=== PATIENT | female | born 1975 | race Caucasian/White ===

== ENCOUNTER 2016-11-01 19:23 | Emergency (ER) | payer MEDICAID ==
[2016-11-01 19:28] VITALS: TEMP 98.6
--- NOTE | 2016-11-01 19:32 | EDPHY ---
H & P Stated Complaint: STEPPED BACKWARDS, SUDDEN PAIN RIGHT ANKLE, CANT WALK ON Time Seen by Provider: 11/01/16 19:32 - Personal History LMP (Females 10-55): 8-14 Days Ago Current Tetanus/Diphtheria Vaccine: Yes Tetanus Vaccine Date: within 10 yrs? - Medical/Surgical History Hx Asthma: No Hx Chronic Respiratory Disease: No Hx Diabetes: No Hx Cardiac Disease: No Hx Renal Disease: No Hx Cirrhosis: No Hx Alcoholism: Yes Hx HIV/AIDS: No Hx Splenectomy or Spleen Trauma: No Other PMH: fibromyalgia, tachycardia, bipolar, T7-L1 disk fusion, appendectomy - Social History Smoking Status: Current every day smoker Constitutional: Initial Vital Signs Temperature (C) 37.0 C 11/01/16 19:24 Heart Rate 73 11/01/16 19:24 Respiratory Rate 18 11/01/16 19:24 Blood Pressure 134/102 H 11/01/16 19:24 O2 Sat (%) 95 11/01/16 19:24 O2 Delivery Mode Room Air Allergies/Adverse Reactions: shellfish derived Allergy (Severe, Verified 03/16/16 11:47) Anaphylaxis acetaminophen Allergy (Mild, Verified 03/16/16 11:47) Vomiting hydrocodone bitartrate [From Vicodin] Allergy (Mild, Verified 03/16/16 11:47) Vomiting Home Medications: Medication Instructions Recorded Hydroxyzine Pamoate 25 mg PO TID PRN 03/19/15 PREGABALIN [LYRICA] 100 mg PO QID 03/19/15 Propranolol HCl [Inderal 20mg (*)] 20 mg PO TID 03/19/15 buPROPion SR [Wellbutrin 100mg SR 100 mg PO DAILY@08 03/19/15 (*)] traMADol [Ultram 50 mg (*)] 50 mg PO DAILY 03/19/15 traMADol [Ultram 50 mg (*)] 50 mg PO Q6 PRN #30 tab 03/19/15 traZODone [traZODONE 50MG (*)] 50 mg PO HS 03/19/15 Latuda 07/19/15 Ondansetron Odt [Zofran Odt 4 mg 4 mg PO Q4PRN PRN #10 tab 03/16/16 (*)] Potassium Chloride Po [Potassium 20 meq PO BID #7 ml 12/20/16 Chloride 20 mg/15 ml (*)] Promethazine HCl [Phenergan 25mg 25 mg PO Q4-6PRN PRN #7 tab 03/16/16 (*)] Medical Decision Making - Diagnostics Imaging Results: Imaging Impressions Lower Extremity MRI 11/01/16 19:46 Impression: 1. Minimal strain and partial tear distal Achilles tendon, as above. 2. Minimal tendinopathy peroneal brevis and longus tendon. Results called and discussed with Nolan Gaytan M.D., on November 01, 2016 at 2057. Imaging: Discussed imaging studies w/ call center team leader Radiologist ED Course/Re-evaluation: CHIEF COMPLAINT: Right ankle injury HISTORY OF PRESENT ILLNESS: This patient is a 41 year old female complaining of right ankle pain secondary to an incident about an hour and a half prior to arrival. She was standing at kitchen counter making a cup of tea, took a step backward, pain went shooting through ankle. She denies rolling her ankle in either direction. Her pain is in the area of her Achilles tendon. She wrapped and iced her ankle at home. She is unable to bear weight on her right ankle. She experienced continued pain, and presents for evaluation. No fever, chills, vomiting, or other associated symptoms. REVIEW OF SYSTEMS: A 10 point review of systems was performed and is negative with the exception of the elements mentioned in the history of present illness. PHYSICAL EXAM: HR, BP, O2 Sat, RR. Temp noted General Appearance: Alert, well hydrated, appropriate, and non-toxic appearing. Head: Atraumatic without scalp tenderness or obvious injury Eyes: Pupils equal, round, reactive to light and accommodation, EOMI, no trauma , no injection. Throat: Mucus membranes moist. Neck: Supple, nontender. Respiratory: No retractions, no distress, no wheezes, and no accessory muscle use. Cardiovascular: Regular rate and rhythm. Good capillary refill all extremities. Musculoskeletal: Tenderness to right ankle, especially in the area of the Achilles tendon. Normal active ROM of all extremities, atraumatic. Neurological: Alert, appropriate, and interactive. The patient has normal DTRs and non-focal cranial nerves, motor, sensory, and cerebellar exam. Skin: No rashes, good turgor, no nodules on palpation. Past medical history: Fibromyalgia, Tachycardia, Bipolar. Past surgical history: T7-L1 spine fusion. Appendectomy. Family history: Noncontributory Social history: Friend at bedside. . Lives in [place]. PCP: Dr. May Portillo. DIFFERENTIAL DIAGNOSIS: Includes but not limited to ankle sprain, strain, fracture, Achilles tendon rupture. MEDICAL DECISION MAKING: Patient is taking Naltrexone so declines narcotic pain medications. 19:[address] Alva, radiologist. Plan for MRI ankle to evaluate Achilles tendon. 20:57 MRI shows partially torn Achilles tendon at posterior calcaneus. Plan to discharge home in good condition with Matt boot and crutches, partial weightbearing as tolerated. Follow up with orthopedics. Return precautions discussed. The patient is comfortable with this plan. Departure - Departure Disposition: Home, Routine, Self-Care Clinical Impression: Partial rupture of Achilles tendon Qualifiers: Encounter type: initial encounter Laterality: right Qualified Code(s): S86.011A - Strain of right Achilles tendon, initial encounter Condition: Good Instructions: Achilles Tendon Rupture (ED) Additional Instructions: 1. Follow up with an 4 h youth development specialist this week. We have referred you to our 4 h youth development specialist forest fire prevention manager. 2. Wear your Matt boot as directed until follow up with orthopedics. Use your crutches as directed. You may partially bear weight. 3. Take Tylenol or ibuprofen as directed on the packaging for pain and swelling 4. Rest, ice and elevation for symptom relief. 5. Return to the emergency department for worsening pain, swelling, numbness, weakness or other concerns. Referrals: May Portillo MD [Primary Care Provider] - As per Instructions Lc Thacker MD [Medical Doctor] - As per Instructions Report Scribed for: Nolan Gaytan Report Scribed by: Ros Saleh Date of Report: 11/01/16 Time of Report: 19:37
[2016-11-01 21:41] VITALS: BP 134/89; PULSE 80; RESP 16; O2SAT 96
== END 2016-11-01 21:46 | disposition home or self-care (01) ==
DX: S86.011A Strain of right Achilles tendon, initial encounter (principal); F17.200 Nicotine dependence, unspecified, uncomplicated; X58.XXXA Exposure to other specified factors, initial encounter
CPT/HCPCS: L4386

== ENCOUNTER 2018-02-09 20:22 | Emergency (ER) | payer MEDICAID ==
--- NOTE | 2018-02-09 20:25 | EDPHY ---
H & P Time Seen by Provider: 02/09/18 20:25 HPI/ROS: HPI CHIEF COMPLAINT: Fall, head injury. HISTORY OF PRESENT ILLNESS: This patient very pleasant 42-year-old female, history of fibromyalgia bipolar disorder, she drinking alcohol this evening, and tripped over something that her child left out on the ground this caused her to lose her balance, with head strike against the entertainment center. Mainly left-sided head strike. No LOC. She arrives to the emergency room by private vehicle. She smells of alcohol, slurring her speech. There is no significant visible sign of trauma on exam however patient is complaining of left-sided headache. No neck pain. She is intoxicated with alcohol. Past Medical History: Significant past medical history for fibromyalgia, bipolar disorder, T7 through L1 fusion Past Surgical History: T7 through L1 fusion, appendectomy Social History: Denies drugs alcohol tobacco. Family History: Noncontributory ROS REVIEW OF SYSTEMS: 10 Systems were reviewed and negative with the exception of the elements mentioned in the history of present illness. Exam Constitutional smells of alcohol, triage nursing summary reviewed, vital signs reviewed, awake/alert. Eyes normal conjunctivae and sclera, EOMI, PERRLA. HENT head/neck atraumatic on exam however patient complains of pain left parietal temporal region, no midline cervical spine pain, no step-offs, no crepitus moist mucus membranes, no epistaxis, neck supple/ no meningismus, no raccoon eyes. Respiratory clear to auscultation bilaterally, normal breath sounds, no respiratory distress, no wheezing. Cardiovascular rate normal, regular rhythm, no murmur, no edema, distal pulses normal. Gastrointestinal soft, non-tender, no rebound, no guarding, normal bowel sounds, no distension, no pulsatile mass. Genitourinary no CVA tenderness. Musculoskeletal no midline vertebral tenderness, full range of motion, no calf swelling, no tenderness of extremities, no meningismus, good pulses, neurovascularly intact. Skin pink, warm, & dry, no rash, skin atraumatic. Neurologic awake, alert and oriented x 3, AAOx3, moves all 4 extremities equally, motor intact, sensory intact, CN II-XII intact, normal cerebellar, normal vision, slurring speech Psychiatric normal mood/affect. Heme/Lymph/Immune no lymphadenopathy. Differential Diagnosis: Includes but is not limited to in a particular order acute alcohol intoxication, closed head injury, concussion, intracranial bleed, subdural, epidural, traumatic subarachnoid, skull fracture Medical Decision Making: Plan for this patient breath alcohol, CT scan head without contrast for trauma. Re-evaluation: Patient's breath alcohol at 8:32 p.m. Upon arrival to the emergency room is 0.178. CT scan head without contrast negative for acute traumatic injury. No evidence of intracranial bleed or skull fracture. Patient re-evaluated 2107 resting comfortably. Infection was sleeping at 1 point. Nonfocal neurological exam. Alcohol level noted. She is safe ride home. She is able to walk appropriately. CT scan does not show any evidence of acute bleed. I have discussed her results at length with her. She is comfortable discharge home. Source: Patient - Personal History Tetanus Vaccine Date: within 10 yrs? - Medical/Surgical History Hx Asthma: No Hx Chronic Respiratory Disease: No Hx Diabetes: No Hx Cardiac Disease: No Hx Renal Disease: No Hx Cirrhosis: No Hx Alcoholism: Yes Hx HIV/AIDS: No Hx Splenectomy or Spleen Trauma: No Other PMH: fibromyalgia, tachycardia, bipolar, T7-L1 disk fusion, appendectomy - Social History Smoking Status: Current every day smoker Constitutional: Initial Vital Signs Temperature (C) 36.5 C 02/09/18 20:32 Heart Rate 82 02/09/18 20:32 Respiratory Rate 18 02/09/18 20:32 Blood Pressure 149/80 H 02/09/18 20:32 O2 Sat (%) 96 02/09/18 20:32 O2 Delivery Mode Room Air Allergies/Adverse Reactions: shellfish derived Allergy (Severe, Verified 03/16/16 11:47) Anaphylaxis acetaminophen Allergy (Mild, Verified 03/16/16 11:47) Vomiting hydrocodone bitartrate [From Vicodin] Allergy (Mild, Verified 03/16/16 11:47) Vomiting Home Medications: Medication Instructions Recorded Hydroxyzine Pamoate 25 mg PO TID PRN 03/19/15 PREGABALIN [LYRICA] 100 mg PO QID 03/19/15 Propranolol HCl [Inderal 20mg (*)] 20 mg PO TID 03/19/15 buPROPion SR [Wellbutrin 100mg SR 100 mg PO DAILY@08 03/19/15 (*)] traMADol [Ultram 50 mg (*)] 50 mg PO DAILY 03/19/15 traMADol [Ultram 50 mg (*)] 50 mg PO Q6 PRN #30 tab 03/19/15 traZODone [traZODONE 50MG (*)] 50 mg PO HS 03/19/15 Latuda 07/19/15 Ondansetron Odt [Zofran Odt 4 mg 4 mg PO Q4PRN PRN #10 tab 03/16/16 (*)] Potassium Chloride Po [Potassium 20 meq PO BID #7 ml 03/16/16 Chloride 20 mg/15 ml (*)] Promethazine HCl [Phenergan 25mg 25 mg PO Q4-6PRN PRN #7 tab 03/16/16 (*)] Departure - Departure Disposition: Home, Routine, Self-Care Clinical Impression: Fall Qualifiers: Encounter type: initial encounter Qualified Code(s): W19.XXXA - Unspecified fall, initial encounter Head injury Qualifiers: Encounter type: initial encounter Qualified Code(s): S09.90XA - Unspecified injury of head, initial encounter Alcohol intoxication Qualifiers: Complication of substance-induced condition: uncomplicated Qualified Code(s): F10.920 - Alcohol use, unspecified with intoxication, uncomplicated Condition: Good Instructions: Concussion (ED), Head Injury (ED), Alcohol Intoxication (ED) Referrals: May Portillo MD [Primary Care Provider] - As per Instructions
[2018-02-09 21:17] VITALS: BP 112/75
== END 2018-02-09 21:18 | disposition home or self-care (01) ==
DX: S09.90XA Unspecified injury of head, initial encounter (principal); F10.920 Alcohol use, unspecified with intoxication, uncomplicated; W01.198A Fall on same level from slipping, tripping and stumbling with subsequent striking against other object, initial encounter; Y92.9 Unspecified place or not applicable; Y93.9 Activity, unspecified; Y99.9 Unspecified external cause status

== ENCOUNTER 2018-02-13 12:16 | Emergency (ER) | payer MEDICAID ==
--- NOTE | 2018-02-13 12:40 | EDPHY ---
H & P Time Seen by Provider: 02/13/18 12:26 HPI/ROS: CHIEF COMPLAINT: I feel worse HISTORY OF PRESENT ILLNESS: 42-year-old woman was here in the emergency department on February 09. She tripped over something her child left on the floor, hit the left side of her head versus an entertainment center, did not lose consciousness. She presented and had a negative noncontrast head CT scan of her head. She felt better the next day but over the last 2 days has felt worse. She describes having difficulty focusing with her eyes, searching for words, and worsening left-sided headache. It now radiates to the base of her neck on the left side she says it is associated with feeling numb and heavy on the left side her face, feeling a little bit of off balance and dizzy with increased memory loss. Symptoms moderate, not better worse with anything. Really increased over the last 48 hr. She has been taking ibuprofen which helps but then the headache reoccurs. REVIEW OF SYSTEMS: Eye: HPI ENT: No ear symptoms Cardiac: no chest pain or syncope Pulmonary: no cough or SOB Abdomen: No vomiting or abdominal pain Musculoskeletal: HPI, has some left shoulder pain which is where she landed. That is pretty stable. Skin: no rash Neuro: HPI Constitutional: no fever : no urinary symptoms A comprehensive 10 point review of systems is otherwise negative aside from elements mentioned in the history of present illness. PAST MEDICAL HISTORY: Includes fibromyalgia, bipolar disorder, spinal fusion, appendectomy and cholecystectomy. Social history: Here with family, nonsmoker General Appearance: Alert and conversant, cooperative. Eyes: No scleral icterus. Pupils equal reactive to light extraocular motion intact. ENT, Mouth: Normal mucous membranes. No hemotympanum. Respiratory: Normal respiratory effort, breath sounds equal, lungs are clear to auscultation. Cardiovascular: Regular rate and rhythm. Gastrointestinal: Abdomen is soft and non tender. No splenic tenderness. Neurological: Alert, face symmetric, normal motor and sensory in extremities. Normal [id number] bilaterally, she walked to the room, does not have truncal ataxia, no pronator drift. Speech is fluent. She has intact sensation to light touch in both sides of her face. Skin: Warm and dry, no rashes. Musculoskeletal: No cervical thoracic or lumbar spine midline tenderness to palpation. She can lift her left arm up over her head does not have bony tenderness on her left shoulder. No left upper extremity tenderness. Psychiatric: Not agitated. Emergency Department course/MDM: More likely to be prolonged severe concussion, however with left-sided neck pain and neurologic symptoms and feeling vertigo and off balance, CT angio of her neck discussed and consented. Would repeat noncontrast head CT to look for delayed bleeding, angiography. Discharge with primary care follow-up if negative. 1253: Potassium notice slightly low at 2.9. The patient does not have symptoms of muscle weakness or syncope or palpitations. She says she typically runs a low potassium and normally takes an oral supplement but has not for the last 3 days. 40 mEq orally here. 1355: CT head and angio head/neck discussed with radiologistLilo. Negative for acute or subacute traumatic injury or dissection. Discussed the results with the patient. She states she is comfortable with discharge, referred to her primary care doctor and to the concussion Clinic Dr. Eisenberg. She was warned of a left internal capsule finding noted by the radiologist which was present on previous CT and on MRI in 2015. Smoking Status: Current every day smoker Constitutional: Initial Vital Signs Temperature (C) 36.7 C 02/13/18 12:18 Heart Rate 101 H 02/13/18 12:18 Respiratory Rate 16 02/13/18 12:18 Blood Pressure 129/95 H 02/13/18 12:18 O2 Sat (%) 96 02/13/18 12:18 O2 Delivery Mode Room Air Allergies/Adverse Reactions: shellfish derived Allergy (Severe, Verified 03/16/16 11:47) Anaphylaxis acetaminophen Allergy (Mild, Verified 03/16/16 11:47) Vomiting hydrocodone bitartrate [From Vicodin] Allergy (Mild, Verified 03/16/16 11:47) Vomiting Home Medications: Medication Instructions Recorded Hydroxyzine Pamoate 25 mg PO TID PRN 03/19/15 PREGABALIN [LYRICA] 100 mg PO QID 03/19/15 Propranolol HCl [Inderal 20mg (*)] 20 mg PO TID 03/19/15 buPROPion SR [Wellbutrin 100mg SR 100 mg PO DAILY@08 03/19/15 (*)] traMADol [Ultram 50 mg (*)] 50 mg PO DAILY 03/19/15 traMADol [Ultram 50 mg (*)] 50 mg PO Q6 PRN #30 tab 03/19/15 traZODone [traZODONE 50MG (*)] 50 mg PO HS 03/19/15 Latuda 07/19/15 Ondansetron Odt [Zofran Odt 4 mg 4 mg PO Q4PRN PRN #10 tab 03/16/16 (*)] Potassium Chloride Po [Potassium 20 meq PO BID #7 ml 03/16/16 Chloride 20 mg/15 ml (*)] Promethazine HCl [Phenergan 25mg 25 mg PO Q4-6PRN PRN #7 tab 03/16/16 (*)] Medical Decision Making - Diagnostics Imaging Results: Imaging Impressions Head CT 02/13/18 12:47 Impression: No acute intracranial findings. Rito Allen was notified of these findings by telephone at 2:00 PM on 02/13/2018 Head CTA 02/13/18 12:47 Impression: 1. There is no hemodynamically significant ICA stenosis. 2. Patent vertebral arteries. CT ANGIOGRAPHY OF THE BRAIN: The major vessels of the [place] are well visualized, and there is no large aneurysm, vascular malformation, flow- limiting stenosis, or acute occlusion identified. A mild amount of intimal irregularity is seen in the supraclinoid ICA on the right, this atherosclerotic lesion is partially calcified as seen on noncontrast image 4-37, and does not cause any significant stenosis. The distal cervical, petrous, cavernous, and supraclinoid portions of the internal carotid arteries are patent. The A1 and A2 segments are patent as are the M1, M2, and M3 trifurcation vessels. With regards to the posterior circulation, the distal vertebral arteries are patent. The posterior inferior cerebellar arteries, vertebrobasilar confluence, anterior inferior cerebellar arteries, basilar artery, superior cerebellar arteries, and the posterior cerebral arteries are patent. The posterior communicating arteries are patent. Impression: 1. No evidence of acute arterial dissection or thrombus. Rito Allen was notified of these findings by telephone at 2:00 PM on 02/13/2022 Neck CTA 02/13/18 12:47 Impression: 1. There is no hemodynamically significant ICA stenosis. 2. Patent vertebral arteries. CT ANGIOGRAPHY OF THE BRAIN: The major vessels of the [place] are well visualized, and there is no large aneurysm, vascular malformation, flow- limiting stenosis, or acute occlusion identified. A mild amount of intimal irregularity is seen in the supraclinoid ICA on the right, this atherosclerotic lesion is partially calcified as seen on noncontrast image 4-37, and does not cause any significant stenosis. The distal cervical, petrous, cavernous, and supraclinoid portions of the internal carotid arteries are patent. The A1 and A2 segments are patent as are the M1, M2, and M3 trifurcation vessels. With regards to the posterior circulation, the distal vertebral arteries are patent. The posterior inferior cerebellar arteries, vertebrobasilar confluence, anterior inferior cerebellar arteries, basilar artery, superior cerebellar arteries, and the posterior cerebral arteries are patent. The posterior communicating arteries are patent. Impression: 1. No evidence of acute arterial dissection or thrombus. Rito Allen was notified of these findings by telephone at 2:00 PM on 02/13/2022 Imaging: Discussed imaging studies w/ train caller Radiologist Differential Diagnosis: Differential considered including but not limited to delayed subdural, delayed subarachnoid, vascular dissection, concussion. - Data Points Laboratory Results: 02/13/18 12:46 POC Hgb 12.6 gm/dL gm/dL (12.6-16.3) POC Hct 37 % L % (38-47) POC Sodium 138 mEq/L mEq/L (135-145) POC Potassium 2.9 mEq/L L mEq/L (3.3-5.0) POC Chloride 96 mEq/L L mEq/L (97-110) POC BUN 9 mg/dL mg/dL (7-23) POC Creatinine 0.7 mg/dL mg/dL (0.6-1.0) POC Glucose 83 mg/dL mg/dL (70-100) Medications Given: Discontinued Medications Potassium Chloride (Klor-Con) 40 meq PO EDNOW ONE Stop: 02/13/18 12:54 Last Admin: 02/13/18 13:16 Dose: 40 meq Point of Care Test Results: Chemistry 02/13/18 12:46 POC Sodium 138 mEq/L mEq/L (135-145) POC Potassium 2.9 mEq/L L mEq/L (3.3-5.0) POC Chloride 96 mEq/L L mEq/L (97-110) POC BUN 9 mg/dL mg/dL (7-23) POC Creatinine 0.7 mg/dL mg/dL (0.6-1.0) POC Glucose 83 mg/dL mg/dL (70-100) ISTAT H&H 02/13/18 12:46 POC Hgb 12.6 gm/dL gm/dL (12.6-16.3) POC Hct 37 % L % (38-47) Departure - Departure Disposition: Home, Routine, Self-Care Clinical Impression: Post concussion syndrome, Hypokalemia Concussion Qualifiers: Encounter type: subsequent encounter Loss of consciousness presence/duration: without LOC Qualified Code(s): S06.0X0D - Concussion without loss of consciousness, subsequent encounter Condition: Good Instructions: Concussion (ED), Post Concussion Syndrome (ED) Additional Instructions: Take your potassium supplement as prescribed. OK to use oral ibuprofen 600mg every 8 hours as needed for headache. These symptoms likely are from your concussion sustained after the fall. Referrals: May Portillo MD [Primary Care Provider] - As per Instructions Barb Eisenberg MD [Medical Doctor] - As per Instructions (referral to Concussion/Head injury Clinic)
[2018-02-13] MEDS ORDERED: POTASSIUM CL 20 MEQ TAB PO ONE (12:53)
[2018-02-13] MEDS ORDERED: IOPAMIDOL (ISOVUE 370) 100 ML BTL IV ONE (12:54)
[2018-02-13 14:21] VITALS: BP 127/88
== END 2018-02-13 14:19 | disposition home or self-care (01) ==
DX: S06.0X0D Concussion without loss of consciousness, subsequent encounter (principal); W01.0XXA Fall on same level from slipping, tripping and stumbling without subsequent striking against object, initial encounter; Y93.9 Activity, unspecified; Y92.9 Unspecified place or not applicable
CPT/HCPCS: 82435-PO; 82565-PO; 82947-PO; 84132-PO; 84295-PO; 84520-PO; 85014-PO; Q9967

== ENCOUNTER → 2018-06-12 | Outpatient (CLI) | payer MEDICAID | LOC: CIMAGING 08:37 | PROVIDERS: ATTEND Family Medicine | DX: Z12.31 Encounter for screening mammogram for malignant neoplasm of breast (principal) | CPT/HCPCS: 36415-PO ==